=== PATIENT | female | born 1965 | race Hispanic/Latino ===

== ENCOUNTER 2016-11-26 19:58 | Emergency (ER) | payer BC, OTHER ==
[2016-11-26 20:13] VITALS: BP 146/82; PULSE 70; RESP 18; TEMP 98; O2SAT 99
[2016-11-26] MEDS ORDERED: cefTRIAXone (Rocephin) 1 gm Inj ONE (20:38)
--- NOTE | 2016-11-26 20:43 | ED PDOC ---
Lower Extremity Pain/Injury Time Seen by Provider: 11/26/16 20:14 Chief Complaint (Nursing): Lower Extremity Problem/Injury Chief Complaint (Provider): right leg infection History Per: Patient History/Exam Limitations: no limitations Additional Complaint(s): 51yo F in ED for eval of right lower leg infection-noted 3days ago-states that she has hx of contact dermatitis-investigated and bx by director emergency department r/o any caustic factor for dermatitis. pt now on an antihistamine for allergy . Pt admits to shaving legs 3 days ago, noted redness, swelling, warmth mild drainage and heat to lower aspect of ant. leg on the right. denies: fever, chills, malaise. Past Medical History Reviewed: Historical Data, Nursing Documentation, Vital Signs Vital Signs: Last Vital Signs Temp 98 F 11/26/16 20:06 Pulse 70 11/26/16 20:06 Resp 18 11/26/16 20:06 BP 146/82 11/26/16 20:06 Pulse Ox 99 11/26/16 20:06 - Medical History PMH: No Chronic Diseases - Family History Family History: States: Unknown Family Hx - Home Medications Home Medications: Ambulatory Orders Medication Instructions Recorded Albuterol Sulfate [Albuterol 3 ml IH Q6 PRN #30 vial 04/16/15 Sulfate 2.5mg/3 ml 0.083%] Fluticasone Nasal [Flonase] 1 actuation NS BID #1 bottle 04/16/15 Mask, Face [Nebulizer Aerosol Mask 1 dev INH PRN PRN #1 dev 04/16/15 Adult] Nebulizer [Compact Compressor 1 dev XX Q6 PRN #1 dev 04/16/15 Nebulizer] Prednisone 50 mg PO DAILY #4 tab 04/16/15 Clindamycin [Cleocin] 300 mg PO TID #30 cap 11/26/16 Mupirocin [Centany] 1 - 2 gm TP BID #30 oint...g. 11/26/16 - Allergies Allergies/Adverse Reactions: Allergies Allergy/AdvReac Type Severity Reaction Status Date / Time No Known Allergies Allergy Verified 04/16/15 18:22 Wells Criteria for PE - Wells Criteria for Pulmonary Embolism Clinical Signs and Symptoms of DVT: No P.E is #1 Diagnosis, or Equally Likely: No Heart Rate >100: No Immobilization at least 3 days;Surgery previous 4 weeks: No Previous, objectively diagnosed PE or DVT: No Hemoptysis: No Malignancy w/treatment within 6 months, or palliative: No Total Score: 0 Review of Systems ROS Statement: Except As Marked, All Systems Reviewed And Found Negative Constitutional: Negative for: Fever, Malaise Gastrointestinal: Negative for: Nausea, Vomiting Musculoskeletal: Positive for: Leg Pain Skin: Positive for: Rash Physical Exam - Reviewed Nursing Documentation Reviewed: Yes Vital Signs Reviewed: Yes - Physical Exam Appears: Positive for: Well, Non-toxic, No Acute Distress Cardiovascular/Chest: Positive for: Regular Rate, Rhythm Respiratory: Positive for: CNT, Normal Breath Sounds Extremity: Positive for: Other (right ant. leg-area of ertyehma, dermatitis, warmth, elevation of skin borders of lesion, small area of induration, round with mild drainage. mild swelling. nuerovasc intact) Neurologic/Psych: Positive for: Alert, Oriented - Laboratory Results Result Diagrams: 11/26/16 21:07 11/26/16 21:07 - ECG O2 Sat by Pulse Oximetry: 99 - Progress ED Course And Treament: Pt will get IV abx(rocpehin 1gm IV) and labs. Medical Decision Making Medical Decision Making: normal CBC/CMP pt will be d/c with cleocin and muprocin. VS stable and well appearing. Disposition - Clinical Impression Clinical Impression: Cellulitis - Patient ED Disposition Is Patient to be Admitted: No Counseled Patient/Family Regarding: Studies Performed, Diagnosis, Need For Followup, Rx Given - Disposition Disposition: Routine/Home Disposition Time: 21:38 Condition: STABLE Additional Instructions: do make sure to follow up with your doctor in 3 days Prescriptions: Clindamycin [Cleocin] 300 mg PO TID #30 cap Mupirocin [Centany] 1 - 2 gm TP BID #30 oint...g. Instructions: Cellulitis (ED)
[2016-11-26 21:11] LABS: BASO # 0.1 K/uL (0.0-0.2); BASO % 1.1 % (0.0-2.0); EOS # 0.2 K/uL (0.0-0.7); EOS % 3.1 % (0.0-4.0); HEMOGLOBIN 12.6 g/dL (12.0-16.0); LYMPH # 1.8 K/uL (1.0-4.3); LYMPH % 30.7 % (20.0-40.0); MEAN CELL VOLUME 84.9 fl (81.0-99.0); MEAN CORPUSCULAR HEMOGLOBIN 27.8 pg (27.0-31.0); MEAN CORPUSCULAR HGB CONC 32.7 g/dL (33.0-37.0); MEAN PLATELET VOLUME 8.4 fl (7.2-11.7); MONO # 0.5 K/uL (0.0-0.8); MONO % 7.8 % (0.0-10.0); NEUT # 3.4 K/uL (1.8-7.0); NEUT % 57.3 % (50.0-75.0); RBC 4.56 Mil/uL (3.80-5.20); RED CELL DISTRIBUTION WIDTH 13.5 % (11.5-14.5); WHITE BLOOD COUNT 5.9 K/uL (4.8-10.8)
[2016-11-26 21:21] LABS: ALB/GLOB RATIO 1.5 (1.0-2.1); ALBUMIN 4.3 g/dL (3.5-5.0); ALT/SGPT 51 U/L (9-52); AST/SGOT 37 U/L (14-36); BLOOD UREA NITROGEN 19 mg/dl (7-17); GFR AFRICAN-AMERICAN > 60; GFR NON-AFRICAN AMERICAN > 60
== END 2016-11-26 22:28 | disposition home or self-care (01) ==
LOC: H.ER 19:58
DX: L03.116 Cellulitis of left lower limb (principal)